=== PATIENT | female | born 1950 | race Caucasian/White ===

== ENCOUNTER 2016-11-15 08:50 | Emergency (ER) | payer MEDICARE ==
[~2016-11-15 08:50] MED LIST: ALAVERT10 M1 PO; ALPRAZOLAM0.25 M2 PO; ALPRAZOLAM0.5 M2 PO; ASPIR 8181 MG PO; BUSPIRONE HCL10 MG PO; DONEPEZIL HCL5 MG PO; LAMICTAL25 M PO; NORCO 5/325 TAB1 TAB PO; SULFAMETHOXAZO1 EAC1 PO; ZOFRAN8 MG PO
[2016-11-15 09:25] LABS: BASO ABSOLUTE COUNT 0.1 tho/cmm (0.0-0.2); EOSINOPHIL ABSOLUTE COUNT 0.2 tho/cmm (0.0-0.7); HCT-HEMATOCRIT 41.6 % (34.0-49.0); LYMPH % 27.4 % (20-45); LYMPH ABSOLUTE COUNT 1.7 tho/cmm (0.8-4.5); MCH (MEAN CORPUSCULAR HGB) 28.5 pg (28.0-32.0); MCHC MEAN CORPUSCULAR HGB CONC 33.7 % (32.0-36.0); MCV (MEAN CELL VOLUME) 84.7 fl (82.0-96.0); MEAN PLATELET VOLUME 9.3 cmc (9.4-12.4); MONOCYTE ABSOLUTE COUNT 0.5 tho/cmm (0.0-1.2); NEUTROPHIL ABSOLUTE COUNT 3.6 tho/cmm (1.6-8.0); NEUTROPHIL-AUTOMATED 3.6 tho/cmm (1.6-8.0); NEUTROPHILS % 59.6 % (40-80); PLATELET COUNT 337 tho/cmm (150-450); RED BLOOD COUNT 4.91 mil/cmm (4.00-5.20)
[2016-11-15] MEDS ORDERED: DYMISTA NASAL S23 G1 (09:36)
[2016-11-15] MEDS ORDERED: SALINE NASAL SP30 M1 (09:37)
[2016-11-15] MEDS ORDERED: NAMENDA10 M1 PO (09:37)
[2016-11-15] MEDS ORDERED: SYMBICORT 160-1 PUFF INH (09:37)
[2016-11-15] MEDS ORDERED: BETAGAN5 M1 EACH EYE (09:38)
[2016-11-15] MEDS ORDERED: PROTONIX20 M2 PO (09:39)
[2016-11-15] MEDS ORDERED: NORVASC5 M2 PO (09:39)
[2016-11-15] MEDS ORDERED: COZAAR100 M1 PO (09:39)
[2016-11-15] MEDS ORDERED: PREMARIN30 GM PV (09:42)
[2016-11-15] MEDS ORDERED: CALCIUM 600 +1 EA17 PO (09:57)
[2016-11-15] MEDS ORDERED: MAGNESIUM OXID400 M1 PO (09:57)
[2016-11-15 10:11] LABS: ALB/GLOB RATIO 1.1 (0.8-2.0); ALBUMIN 4.1 g/dl (3.5-5.0); ALKALINE PHOSPHATASE 113 U/L (33-138); ALT/SGPT 49 U/L (12-78); ANION GAP 15 mmol/L (0-20); AST/SGOT 29 U/L (10-40); BILIRUBIN,TOTAL 0.6 mg/dl (0-1.5); BLOOD UREA NITROGEN 21 mg/dl (6-24); CALCIUM 8.9 mg/dl (8.5-10.5); CARBON DIOXIDE-VENOUS 23 mmol/L (22-32); CHLORIDE 108 mmol/l (96-110); CREATININE 0.66 mg/dl (0.50-1.10); GLUCOSE 105 mg/dL (70-110); POTASSIUM 3.8 mmol/L (3.7-5.1); SODIUM 142 mmol/L (135-145); eGFR VALUE FOR BLACK >90 mL/Min
[2016-11-15] MEDS ORDERED: VITAMIN C500 M3 PO (10:14)
[2016-11-15] MEDS ORDERED: PROAIR HFA8.5 GM INH (10:14)
[2016-11-15] MEDS ORDERED: ASPIRIN EC81 MG PO (10:14)
[2016-11-15] MEDS ORDERED: IBUPROFEN600 M1 PO (11:21)
== END 2016-11-15 11:25 ==
LOC: EDMED 08:50
PROVIDERS: Emergency Medicine
DX: R09.1 Pleurisy (principal); K21.9 Gastro-esophageal reflux disease without esophagitis; Z90.49 Acquired absence of other specified parts of digestive tract; Z90.710 Acquired absence of both cervix and uterus
CPT/HCPCS: J1885; J2270; Q9967